=== PATIENT | female | born 1965 | race Caucasian/White ===

== ENCOUNTER 2016-08-09 23:00 | Emergency (ER) | payer MEDICAID, OTHER ==
[2016-08-09 23:06] VITALS: BP 111/73; PULSE 77; RESP 16; TEMP 98.1; O2SAT 95
== END 2016-08-10 | disposition left against medical advice (07) ==
DX: Z53.21 Procedure and treatment not carried out due to patient leaving prior to being seen by health care provider (principal)

== ENCOUNTER → 2016-09-23 | Outpatient (CLI) | payer MEDICAID | LOC: FIMAGING 13:23 | DX: Z12.31 Encounter for screening mammogram for malignant neoplasm of breast (principal); Z80.3 Family history of malignant neoplasm of breast | CPT/HCPCS: G0202 ==

== ENCOUNTER 2018-05-04 16:26 | Emergency (ER) | payer OTHER ==
[2018-05-04 16:36] VITALS: BP 109/68
--- NOTE | 2018-05-04 17:09 | EDPHY ---
H & P Time Seen by Provider: 05/04/18 17:09 HPI/ROS: CHIEF COMPLAINT: Right great toe pain HISTORY OF PRESENT ILLNESS: A 52-year-old female here with right great toe pain after she stubbed her toe on a box. She has been unable to bear weight since. She has pain with range of motion of the toe. She denies any drug or alcohol use this evening. He has never hurt this toe before. Pain is worse with range of motion. ROS As detailed in HPI Smoking Status: Never smoked Physical Exam: General: Alert and oriented. Nontoxic appearing. No acute distress HEENT: Pupils PERRLA. No oral lesions. Cardiopulmonary: Regular rate and rhythm. No lower extremity edema Skin: Ord warm and dry. No lesions. Muscle skeletal: Moving all 4 extremities. Equal strength in upper extremities and lower extremities. Tenderness over the distal phalanx of the right great toe Constitutional: Initial Vital Signs Temperature (C) 36.7 C 05/04/18 16:34 Heart Rate 65 05/04/18 16:34 Respiratory Rate 18 05/04/18 16:34 Blood Pressure 109/68 05/04/18 16:34 O2 Sat (%) 97 05/04/18 16:34 O2 Delivery Mode Room Air Allergies/Adverse Reactions: No Known Allergies Allergy (Verified 05/04/18 16:33) Home Medications: Medication Instructions Recorded Hydrocodone/APAP 5/325 [[place] 1 tab PO Q6 #8 tab 05/04/18 5/325 (*)] Progesterone 05/04/18 Medical Decision Making - Diagnostics Imaging Results: Imaging Impressions Toe X-Ray 05/04/18 16:36 Impression: Nondisplaced fracture of the right great toe distal phalanx lateral corner base. ED Course/Re-evaluation: Patient here with fracture of the distal phalanx which is in nondisplaced. She was meli taped and referred to Orthopedics for further management. No evidence of dislocation, neurovascular injury, compartment syndrome. Departure - Departure Disposition: Home, Routine, Self-Care Clinical Impression: Toe fracture, right Condition: Good Instructions: Toe Fracture (ED) Additional Instructions: Please meli-tape ED the great toe to the toe next to it for the next 7-10 days and then follow up with Orthopedics in the next week for definitive treatment. Use ice and ibuprofen as needed for pain. You may weightbear on the foot as tolerated. Referrals: Gilma Velasquez MD [Primary Care Provider] - As per Instructions Sav Fox MD [Medical Doctor] - As per Instructions Prescriptions: Hydrocodone/APAP 5/325 [[place] 5/325 (*)] 1 tab PO Q6 #8 tab
== END 2018-05-04 17:54 | disposition home or self-care (01) ==
DX: S92.424A Nondisplaced fracture of distal phalanx of right great toe, initial encounter for closed fracture (principal); W22.8XXA Striking against or struck by other objects, initial encounter; Y92.9 Unspecified place or not applicable; Y93.9 Activity, unspecified; Y99.9 Unspecified external cause status

== ENCOUNTER 2018-06-30 00:35 | Emergency (ER) | payer OTHER ==
[2018-06-30 00:42] VITALS: BP 126/57
[2018-06-30] MEDS ORDERED: IBUPROFEN 200 MG TAB PO ONE ×3 (01:10→01:26)
--- NOTE | 2018-06-30 01:13 | EDPHY ---
H & P Stated Complaint: L FOOT INJ/FALL Time Seen by Provider: 06/30/18 00:45 HPI/ROS: HPI The patient presents with left foot injury which occurred just prior to arrival. Patient was walking down a flight of stairs in the dark, missed the bottom stair, tripped and fell, landed ring on the lateral aspect of her left foot. She had pain immediately and was unable to bear weight. The pain is aching and constant. She has no numbness or tingling.. REVIEW OF SYSTEMS 10 systems were reviewed and negative with the exception of the elements mentioned in the history of present illness. PMHx: Recovering from a right great toe fracture, frequent ankle sprains Soc Hx: Housed with her family, visiting [place] in a few days PHYSICAL General Appearance: Alert, no distress Respiratory: Breathing comfortably Neurological: A&O, moves all extremities Skin: Warm and dry, no rashes Musculoskeletal: Left lateral foot is ecchymotic and slightly edematous with tenderness to palpation overlying the 5th metatarsal, there is sensation intact to the left pinky toe with brisk capillary refill Psychiatric: Patient is oriented X 3, there is no agitation Source: Patient Exam Limitations: No limitations - Personal History LMP (Females 10-55): 8-14 Days Ago Current Tetanus Diphtheria and Acellular Pertussis (TDAP): Yes Tetanus Vaccine Date: 2010 - Medical/Surgical History Hx Asthma: No Hx Chronic Respiratory Disease: No Hx Diabetes: No Hx Cardiac Disease: No Hx Renal Disease: No Hx Cirrhosis: No Hx Alcoholism: No Hx HIV/AIDS: No Hx Splenectomy or Spleen Trauma: No Other PMH: PSHx: tonsillectomy. PMHx: denies - Social History Smoking Status: Never smoked Constitutional: Initial Vital Signs Temperature (C) 36.4 C 06/30/18 00:40 Heart Rate 89 06/30/18 00:40 Respiratory Rate 16 06/30/18 00:40 Blood Pressure 126/57 H 06/30/18 00:40 O2 Sat (%) 100 06/30/18 00:40 O2 Delivery Mode Room Air Allergies/Adverse Reactions: No Known Allergies Allergy (Verified 05/04/18 16:33) Home Medications: Medication Instructions Recorded Progesterone 05/04/18 Medical Decision Making - Diagnostics Imaging Results: Left foot films three views show oblique 5th metatarsal fracture which does not involve the joint, interpreted by me, radiology interpretation is pending. Differential Diagnosis: 52-year-old female with fall down stairs sustaining left 5th metatarsal shaft fracture. Plan for immobilization here with a walking boot or cast shoe. Patient has crutches from previous injury. Have advised orthopedic follow-up in 7-10 days, ibuprofen and Tylenol as needed for pain. She is neurovascularly intact. - Data Points Medications Given: Discontinued Medications Ibuprofen (Motrin) 400 mg PO EDNOW ONE Stop: 06/30/18 01:11 Last Admin: 06/30/18 01:21 Dose: 400 mg Departure - Departure Disposition: Home, Routine, Self-Care Clinical Impression: Closed nondisplaced fracture of fifth left metatarsal bone Qualifiers: Encounter type: initial encounter Qualified Code(s): S92.355A - Nondisplaced fracture of fifth metatarsal bone, left foot, initial encounter for closed fracture Condition: Good Instructions: Foot Fracture in Adults (ED) Additional Instructions: I recommend that you take ibuprofen or Tylenol for the pain. You should use crutches just as needed and when your feeling comfortable, it is okay to bear weight on the foot. I would recommend you follow up with your orthopedist when he returned home from her trip. Return to the ER if your worse in any way. Referrals: Gilma Velasquez MD [Primary Care Provider] - As per Instructions
== END 2018-06-30 01:29 | disposition home or self-care (01) ==
DX: S92.355A Nondisplaced fracture of fifth metatarsal bone, left foot, initial encounter for closed fracture (principal); W10.8XXA Fall (on) (from) other stairs and steps, initial encounter; Y92.9 Unspecified place or not applicable; Y93.9 Activity, unspecified; Y99.9 Unspecified external cause status
CPT/HCPCS: L4386

== ENCOUNTER → 2018-11-07 | Outpatient (CLI) | payer OTHER | LOC: FIMAGING 14:05 | PROVIDERS: ATTEND Family Medicine | DX: Z12.31 Encounter for screening mammogram for malignant neoplasm of breast (principal); Z80.3 Family history of malignant neoplasm of breast ==